=== PATIENT | male | born 1965 | race Caucasian/White ===

== ENCOUNTER → 2016-07-25 | Outpatient (CLI) | payer OTHER ==
--- NOTE | 2016-07-27 06:28 | SLEEPCENT ---
DATE OF PROCEDURE: 07/25/2016 ORDERED BY: SHANIKA Martin Nocturnal polysomnography was performed for the evaluation of sleep apnea syndrome symptoms in this patient with a history of nonrestorative sleep an d excessive somnolence. 8 hours of data were reviewed. There were 387 minutes of sleep identified. Sleep latency was prolonged at 35 minutes. Rapid eye movement (REM) was prolonged at 185 minutes. Sleep architecture showed fragmentation and progression. Overall sleep efficiency was 82.4%. There were 2 REM periods appreciated. The patient's EKG showed a sinus rhythm with an average heart rate of 55 beats per minute. Rate variability was seen surrounding respiratory events. Rate ranged 40-70 beats per minute. EEG showed reasonably normal waveforms for awake and sleep. There were 173 respiratory events identified of 10 seconds in duration or greater for an apnea hypopnea index of 26.8. The events were primarily obstructive in nature, not exclusive to sleep stage nor body posture. Arousals from respiratory events occurred 12.2 times per hour. Oxygen desaturations were seen into the mid to low 80s. Some limb activity was appreciated but arousals were few. Remaining measures of sleep physiology were normal. IMPRESSION: Obstructive sleep apnea syndrome (G47.33). Apnea hypopnea index 26.8. RECOMMENDATION: The patient should be encouraged to return to the sleep disorder center for pressure therapy titration. In the interim, alcohol and sedative avoidance should be practiced and caution exercised during the operation of motor vehicles.
== END ==
LOC: M SLEEP 19:10
PROVIDERS: ATTEND Nurse Practitioner Adult Health
DX: G47.33 Obstructive sleep apnea (adult) (pediatric) (principal)

== ENCOUNTER → 2016-12-14 | Outpatient (CLI) | payer OTHER ==
[~2016-12-14] VITALS: Ht 172.7 cm; Wt 108.9 kg
[~2016-12-14] MED LIST: LIDOCAINE 2% INJ 100 MG/5 ML SDV (FOR ANES.) As Ordered ONE; NS 1,000 ML IV ONE; PROPOFOL 200 MG/20 ML VIAL As Ordered ONE; SIMETHICONE 40MG/0.6ML DROPS 30ML As Ordered ONE
--- NOTE | 2016-12-14 08:36 | ROOR ---
Patient Name: Gómez Denise Procedure Date: 12/14/2016 8:15 AM Date of : 1965 Age: 51 Room: [facility] Gender: Male Note Status: Finalized Procedure: Total Colonoscopy to Cecum Indications: Screening for colorectal malignant neoplasm Providers: Jossue Keller MD Referring MD: JAD RASHID NP Requesting Provider: Medicines: Monitored Anesthesia Care Complications: No immediate complications. Procedure: Pre-Anesthesia Assessment: - The heart rate, respiratory rate, oxygen saturations, blood pressure, adequacy of pulmonary ventilation, and response to care were monitored throughout the procedure. The Colonoscope was introduced through the anus and advanced to the cecum, identified by appendiceal orifice and ileocecal valve. The colonoscopy was performed without difficulty. The patient tolerated the procedure well. The quality of the bowel preparation was excellent. Findings: The perianal and digital rectal examinations were normal. Non-bleeding internal hemorrhoids were found during retroflexion. The hemorrhoids were small and Grade I (internal hemorrhoids that do not prolapse). No other significant abnormalities were identified in a careful examination of the remainder of the colon. The exam was otherwise without abnormality on direct and retroflexion views. Impression: - Non-bleeding internal hemorrhoids. - The examination was otherwise normal on direct and retroflexion views. - No specimens collected. - The exam was otherwise normal to the cecum. Recommendation: - Patient has a contact number available for emergencies. The signs and symptoms of potential delayed complications were discussed with the patient. Return to normal activities tomorrow. Written discharge instructions were provided to the patient. - High fiber diet. - Discharge patient to home. - Continue present medications. - Repeat colonoscopy in 10 years for screening purposes. - Return to referring physician. - The findings and recommendations were discussed with the patient's family. Jossue Keller MD Jossue Keller MD 12/14/2016 8:35:47 AM This report has been signed electronically. Number of Addenda: 0 Note Initiated On: 12/14/2016 8:15 AM Estimated Blood Loss: Estimated blood loss: none.
[2016-12-14 08:55] VITALS: BP 113/73
== END | disposition home or self-care (01) ==
LOC: M OPP 06:57
PROVIDERS: ATTEND Internal Medicine Gastroenterology
DX: Z12.11 Encounter for screening for malignant neoplasm of colon (principal); K64.0 First degree hemorrhoids; R01.1 Cardiac murmur, unspecified; G47.8 Other sleep disorders; G47.30 Sleep apnea, unspecified; R06.83 Snoring; Z87.891 Personal history of nicotine dependence

== ENCOUNTER → 2017-08-19 | Outpatient (REF) | payer OTHER ==
[2017-08-19 13:27] LABS: INFLUENZA A AMPLIFICATION NEGATIVE (NEGATIVE); INFLUENZA B AMPLIFICATION NEGATIVE (NEGATIVE)
== END ==
LOC: M LAB REF 12:38
DX: B34.9 Viral infection, unspecified (principal)
CPT/HCPCS: 87502

== ENCOUNTER → 2019-02-16 | Outpatient (REF) | payer OTHER ==
[2019-02-18 00:07] LABS: TESTOSTERONE FREE (DIRECT) 4.6 pg/mL (7.2-24.0)
== END ==
LOC: M LAB REF 12:30
PROVIDERS: ATTEND Nurse Practitioner Family
DX: N52.9 Male erectile dysfunction, unspecified (principal)

== ENCOUNTER → 2019-03-17 | Outpatient (REF) | payer OTHER ==
[2019-03-17 11:33] LABS: FOLLICLE STIMULATING HORMONE 5.7 mIU/mL (1.4-18.1); LUTEINIZING HORMONE 1.2 mIU/mL (1.5-9.3); PROLACTIN 3.5 NG/ML (2.1-17.7)
[2019-03-20 10:07] LABS: TESTOSTERONE %FREE+WEAKLY BOUN 19.7 % (9.0-46.0); TESTOSTERONE FREE+WEAKLY BOUND 46.7 ng/dL (40.0-250.0); TESTOSTERONE TOTAL 237 ng/dL (264-916)
== END ==
LOC: M LABDRAW1 08:59
PROVIDERS: ATTEND Nurse Practitioner Family
DX: E29.1 Testicular hypofunction (principal)

== ENCOUNTER → 2019-04-03 | Outpatient (REF) | payer OTHER ==
[2019-04-08 10:12] LABS: TESTOSTERONE %FREE+WEAKLY BOUN 30.5 % (9.0-46.0); TESTOSTERONE TOTAL 331 ng/dL (264-916)
== END ==
LOC: M LABDRAW1 12:47
PROVIDERS: ATTEND Nurse Practitioner Family
DX: E29.1 Testicular hypofunction (principal)

== ENCOUNTER → 2024-04-15 | Outpatient (CLI) | payer OTHER | LOC: M SOG 07:28 | PROVIDERS: ATTEND Orthopaedic Surgery | DX: M54.50 Low back pain, unspecified (principal) ==

== ENCOUNTER → 2024-06-10 | Outpatient (CLI) | payer OTHER | LOC: M SOG 15:12 | PROVIDERS: ATTEND Orthopaedic Surgery | DX: M25.511 Pain in right shoulder (principal) ==

== ENCOUNTER → 2025-04-08 | Outpatient (CLI) | payer OTHER ==
[2025-04-08 10:16] LABS: BASO # 0.1 10^3/uL (0.0-0.2); BASO % 0.5 % (0.0-1.0); EOS # 0.2 10^3/uL (0.0-0.5); EOS % 1.7 % (0.0-3.0); LYMPH # 2.7 10^3/uL (1.5-5.0); LYMPH % 23.0 % (24.0-44.0); MONO # 0.8 10^3/uL (0.0-0.8); MONO % 6.6 % (2.0-8.0); NEUTROPHILS # 7.9 10^3/uL (1.5-8.5); NEUTROPHILS % 67.6 % (36.0-66.0); PLATELET COUNT, AUTOMATED 295 10^3/uL (150-450)
[2025-04-08 12:51] LABS: ALT/SGPT 22 U/L (7.0-40); AST/SGOT 12 U/L (<34); CALCIUM LEVEL 8.9 MG/DL (8.5-10.1); CARBON DIOXIDE LEVEL 24 MMOL/L (20-31); CHLORIDE LEVEL 105 MMOL/L (98-107); CREATININE FOR GFR 0.73 MG/DL (0.70-1.30); GLOMERULAR FILTRATION RATE > 90.0 (>56); POTASSIUM SERUM 4.2 MMOL/L (3.5-5.1); SODIUM LEVEL 138 MMOL/L (136-145)
== END ==
LOC: M PLALAB 08:34
PROVIDERS: ATTEND Nurse Practitioner Family
DX: R05.9 Cough, unspecified (principal); R06.02 Shortness of breath